=== PATIENT | female | born 1970 | race Two or more races ===

== ENCOUNTER 2020-08-01 09:30 | Outpatient (CLI) | payer OTHER ==
[~2020-08-01 09:30] MED LIST: AMOX1TAB12 PO; CORTISPORIN EAR10 M1 OT; GLIPIZIDE10 MG; GLUMETZA1000 MG; INVOKANA300 MG PO; LIPITOR20 MG; METOPROLOL SUCC25 MG
== END 2020-08-01 09:41 | disposition home or self-care (01) ==
LOC: LAB 09:30
PROVIDERS: ATTEND Specialist
DX: Z20.828 Contact with and (suspected) exposure to other viral communicable diseases (principal)

== ENCOUNTER → 2020-11-18 | Emergency (ER) | payer OTHER | END | disposition left against medical advice (07) | LOC: ER 00:29 | DX: Z53.21 Procedure and treatment not carried out due to patient leaving prior to being seen by health care provider (principal) ==

== ENCOUNTER 2021-03-15 09:59 | Outpatient (CLI) | payer OTHER | END 2021-03-15 10:12 | disposition home or self-care (01) | LOC: SONOGRAMA 09:59 | PROVIDERS: ATTEND Specialist | DX: N93.8 Other specified abnormal uterine and vaginal bleeding (principal) ==

== ENCOUNTER → 2021-03-15 10:30 | Outpatient (CLI) | payer OTHER | END | disposition home or self-care (01) | LOC: LAB 10:30 | PROVIDERS: ATTEND Specialist | DX: D51.0 Vitamin B12 deficiency anemia due to intrinsic factor deficiency (principal); D68.8 Other specified coagulation defects; D64.89 Other specified anemias; D65 Disseminated intravascular coagulation [defibrination syndrome] ==

== ENCOUNTER 2021-04-23 07:46 | Outpatient (CLI) | payer OTHER | END 2021-04-23 07:52 | disposition home or self-care (01) | LOC: NUCLEAR 07:46 | PROVIDERS: ATTEND Specialist | DX: I47.1 Supraventricular tachycardia (principal); I82.493 Acute embolism and thrombosis of other specified deep vein of lower extremity, bilateral ==

== ENCOUNTER → 2021-04-23 09:23 | Outpatient (CLI) | payer OTHER | END | disposition home or self-care (01) | LOC: LAB 09:23 | PROVIDERS: ATTEND Specialist | DX: E11.65 Type 2 diabetes mellitus with hyperglycemia (principal); D64.9 Anemia, unspecified ==

== ENCOUNTER 2022-03-04 08:26 | Emergency (ER) | payer OTHER ==
[~2022-03-04] VITALS: Ht 162.6 cm; Wt 68.0 kg
[2022-03-04] MEDS ORDERED: ENALAPRIL M1 MG/1 ML (08:39)
== END 2022-03-04 11:58 | disposition home or self-care (01) ==
LOC: ER 08:26
DX: R07.89 Other chest pain (principal); I10 Essential (primary) hypertension; E11.9 Type 2 diabetes mellitus without complications; Z79.84 Long term (current) use of oral hypoglycemic drugs

== ENCOUNTER → 2023-01-22 | Emergency (ER) | payer OTHER ==
[~2023-01-22] VITALS: Ht 162.6 cm; Wt 67.1 kg
[~2023-01-22] MED LIST changes: +ENALAPRIL M1 MG/1 ML; +ENALAPRIL MALE2.5 MG PO; +KETO10TA2 PO; +METFORMIN HCL500 M3 PO; +NABUMETONE750 MG PO; +NEURONTIN800 MG PO; +NORFLEX100MG PO; +TOPROL XL25 M1 PO; +ZETIA10 MG PO
== END | disposition home or self-care (01) ==
LOC: ER 08:25
DX: M54.50 Low back pain, unspecified (principal)